=== PATIENT | female | born 1925 | race Two or more races ===

== ENCOUNTER 2017-07-29 21:22 | Inpatient (IN) | payer OTHER ==
[~2017-07-29] VITALS: Ht 157.5 cm; Wt 59.0 kg
[~2017-07-29 21:22] MED LIST: BIAXIN500 MG PO; CALTRATE 600600 MG; ENALAPRIL MALEA10 MG; MALATHION59 ML; PLAVIX75 MG; SOCHLOR15 ML
[2017-08-07] MEDS ORDERED: AMLODIPINE BESYL5 MG PO (10:57)
[2017-08-07] MEDS ORDERED: PLAVIX75 MG PO (10:57)
== END 2017-08-07 16:55 | disposition home or self-care (01) | DRG 202 ==
LOC: ER 21:22 → MEDJ 07-30 09:45 → MEDI 07-30 09:45
PROC: 4A033R1 Measurement of Arterial Saturation, Peripheral, Percutaneous Approach (ICD-10-PCS; principal; 2017-07-30)
PROC: BB24ZZZ Computerized Tomography (CT Scan) of Bilateral Lungs (ICD-10-PCS; 2017-07-30)
PROC: B246ZZZ Ultrasonography of Right and Left Heart (ICD-10-PCS; 2017-07-30)
DX: J20.9 Acute bronchitis, unspecified (principal); A41.51 Sepsis due to Escherichia coli [E. coli]; N39.0 Urinary tract infection, site not specified; D69.59 Other secondary thrombocytopenia; Z16.12 Extended spectrum beta lactamase (ESBL) resistance

== ENCOUNTER → 2017-08-25 | Emergency (ER) | payer OTHER ==
[~2017-08-25] VITALS: Ht 152.4 cm; Wt 49.4 kg
[~2017-08-25] MED LIST changes: +AMLODIPINE BESYL5 MG PO; +PLAVIX75 MG PO
== END | disposition home or self-care (01) ==
LOC: ER 11:43
DX: S01.122A Laceration with foreign body of left eyelid and periocular area, initial encounter (principal); W45.8XXA Other foreign body or object entering through skin, initial encounter; Y93.89 Activity, other specified; Y92.89 Other specified places as the place of occurrence of the external cause; Y99.8 Other external cause status